=== PATIENT | male | born 1950 | race Caucasian/White ===

== ENCOUNTER 2022-04-09 14:00 | Outpatient (RCR) | payer MEDICARE, SELFPAY ==
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
--- NOTE | 2022-02-26 10:34 | PCPTNOTE ---
The patient treatment was not able to be completed on 02/26/22 due to patient calling to cancel stating he is unable to make it. Will plan to continue treatment per plan of care.
--- NOTE | 2022-03-06 15:53 | PCPTNOTE ---
Patient called & cancelled scheduled appointment this date due to no reason. Did not reschedule at this time.
--- NOTE | 2022-04-09 14:49 | PTOPEVAL ---
PHYSICAL THERAPY PROGRESS REPORT AND DISCHARGE SUMMARY. Thank you for referring Reed Tao III to [facility].? The patient is to be discharged from skilled therapy services at this time. Please review, sign, date and return this plan of care MAURICIO. I agree with and certify that the following plan of care is medically necessary. Referring Physician Date Attending Provider: Mary Sánchez, HOTEL ASSISTANT GENERAL MANAGER Evaluation Information Diagnosis alcohol induced neuropathy Subjective Information Pt states he is still having Query Text:As Reported By Patient/ issues with his balance. He Family reports he has increased his activity both walking and getting in his pool. He reports intermittently doing his exercises. Pt states he has learned that physical therapy will not fix his nerves. Pain Assessment Pain Score 0: Self Report Lower Extremity Range of Motion General Lower Extremity Range of Motion WFL/Left,WFL/Right Gross Lower Extremity Range of Motion lacks hip extension lorenzo Lower Extremity Muscle Strength Testing Hip Strength Bilateral Hip Flexion Strength 4+ Good + Hip Extension Strength 3+ Fair + Hip Abduction Strength 4- Good - Knee Strength Bilateral Knee Flexion Strength 4+ Good + Knee Extension Strength 5 Normal Muscle Length Testing Two-Joint Hip Flexor Shortened Muscles Short (R) Iliopsoas,Short (L) Iliopsoas,Short (R) Rectus Femoris,Short (L) Rectus Femoris,Short (R) Ilial Tib Band,Short (L) Ilial Tib Band Piriformis w/Hip Neutral (R) Severe Tightness,(L) Severe Tightness Left Hamstring Length -35 Right Hamstring Length -[address] Balance Assessment STREET Balance Evaluation Total Score ( 42/56 Timed Up and Go Test (TUG) (Seconds) 17 Comments Initially: 19s 04/09/22: 17s 5 Time Sit to Stand 5 Time Sit to Stand Comments 23s with use of UEs Query Text:Normative Data: If Greater 24s without use of UEs Than 15 Seconds, 74% Increase Risk for Recurrent Falls Gait Assessment Ambulation Assistive Devices None Gait Pattern Ataxic Gait,Trendelenburg Gait ,Wide Based Gait Gait Pattern Observed Decreased Stride Length - Left ,Decreased Stride Length - Right,No Heel Strike - Left,No Heel Strike - Right,Trunk Flexed Othe
== END 2022-04-10 09:48 | disposition home or self-care (01) ==
LOC: ANHPT 14:00
PROVIDERS: PCP Internal Medicine; Visit Provider Nurse Practitioner Gerontology
DX: G62.1 Alcoholic polyneuropathy (principal)
CPT/HCPCS: 97110; 97112; 97162

== ENCOUNTER 2025-06-28 01:19 | Day surgery (SDC) | payer MEDICARE, SELFPAY ==
--- OUTSIDE RECORDS SUMMARY | 2024-04-17 10:40 | XMS_ITS | Encounter Summary ---
Author Organization [facility] Healthcare Address [address] [place] [address] Care Team Providers Care Conference Assistant Name Role Phone Jairo Guerrero MD Primary Care Provider [phone] Reason for Visit * Diagnostic Imaging (Routine) - Closed Specialty Diagnoses / Procedures Referred By Contac t Referred To Contact Diagnoses Right hip pain Procedures XR Hip Right 2 or 3 Views W Pelvis Steve Matias MD Phone: tel: fax: [facility] Referral ID Status Reason Start Date Expiration Date Visits Re quested Visits Authorized [id number] Closed 04/17/2024 05/17/2025 1 1 Encounter Details Date Type Department Care Team (Late st Contact Info) Description 04/17/2024 10:40 AM CDT Hospital Encounter [facility] Orthopedics and Sports Medicine at [address] [id number] Social History Tobacco Use Types Packs/Day Years Used Date Smoking Tobacco: Former Smokeless Tobacco: Never Alcohol Use Standard Drinks/Week Comments No 0 (1 standard drink = 0.6 oz pur e alcohol) AUDIT-C Answer Date Recorded Q1: How often do you have a drink containing alc ohol? 2-3 times a week 01/20/2022 Q2: How many drinks containi ng alcohol do you have on a typical day when you are drinking? 1 or 2 01/20/2022 Q3: How often do you have si x or more drinks on one occasion? Never 01/20/2022 Sex and Gender Information Value Date Recorded Sex Assigned at Not on file Legal Sex Male 3:20 PM CDT Gender Identity Not on file Sexual Orientation Not on file documented as of this encounter Plan of Treatment Not on file documented as of this encounter Procedures Procedure Name Priority Date/Time Associated Diagnosis Comments XR HIP RIGHT W PELVIS 2 OR 3 VIEWS Schedule Routine, Read Routine (OP Routine) 04/17/2024 10:47 AM CDT Right hip pain documented in this encounter Results * XR Hip Right 2 or 3 Views W Pelvis (04/17/2024 10:47 AM CDT) Anatomical Region Laterality Modality Lower Extremities, Hip, Pelvis Right D igital Radiography Narrative 04/17/2024 11:03 AM CDT Today we obtained x-rays of the hip and pelvis and they show that the prosthesis is in excellent position with no signs of loosening or wear or any other problems. His leg lengths and offset appeared to be equal on x-ray. us Steve Matias MD IMG XR PROCEDURES Final R esult documented in this encounter Visit Diagnoses Not on filedocumented in this encounter Care Teams Conference Assistant Relationship Specialty Start Date End Date Jairo Guerrero MD PCP - General 02/04/17 documented as of this encounter
[2025-06-26 10:35] VITALS: BMI 33.5
--- OUTSIDE RECORDS SUMMARY | 2025-06-28 01:25 | XMS_ITS | Clinical Summary ---
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 Gender Identity Not on file Sexual Orientation Not on file Plan of Treatment Health Maintenance Due Date Last Done Comments Hepatitis C Virus (HCV) Screening 1950 TdaP Immunization 1950 Cologuard 1996 Colonoscopy 1996 Colorectal Cancer Screening 1996 Immunochemical Fecal Occult Blood 1996 Pneumococcal Immunization (5 0+ years) (1 of 1 - PCV) 2001 Zoster Immunization (1 of 2) 2001 SARS-COV-2 Immunization ( season) 2024 09/24/2021, 12/31/2020, 12/03/2020 Influenza Immunization (#1) 2025 07/30/2021 Respiratory Syncytial Virus (RSV) Immunization (Adult) (1 - 1-dose 75+ series) 2026 Hepatitis B Immunization Aged Out No longer eligible based on patient's age to complete this topic Human Papillomavirus (HPV) Immunization Aged Out No longer eligible b ased on patient's age to complete this topic Meningococcal Immunization (ACWY) Aged Out No longer eligible b ased on patient's age to complete this topic Rotavirus Immunization Aged Out No lo nger eligible based on patient's age to complete this topic
--- OUTSIDE RECORDS SUMMARY | 2025-06-28 01:25 | XMS_ITS | Clinical Summary ---
Author Organization [facility] Address [address] [place] [address] Care Team Providers [facility] Name Role Phone Jairo Guerrero MD Primary Care Provider + [phone] Allergies No known active allergies Medications acetaminophen (TYLENOL) 500 mg tablet Take 1 tablet (500 mg total) by mouth every 6 (six) hours as needed for pain 30 tablet 05/14/2022 Active aspirin 81 mg enteric coated tabletIndications :Myocardial Reinfarction Prevention Take 1 tablet (81 mg total) by mouth daily 02/19/2023 Active multivitamin-mine rals-lutein tablet Take by mouth Active atorvastatin (LIPITOR) 10 mg tablet Take 1 tablet (10 mg total) by mouth daily 08/24/2023 Active gabapentin (Neurontin) 600 mg tabletIndications :Neuropathic Pain Take 1 tablet (600 mg total) by mouth 3 (three) times a day 270 tablet 3 07/12/2024 07/12/20 25 Active Active Problems Problem Noted Date Diagnosed Date Dyspnea 09/25/2024 Fracture of rib 09/25/2024 Left knee pain 09/25/2024 Open wound of right hip 09/25/2024 Primary localized osteoarthritis of pelvic regio n and thigh 09/25/2024 Status post total hip replacement, right 024 Transaminitis 02/15/2023 Assessment & Plan (02/19/2023 11:01 AM CDT): Monitor outpt. Mild elevation. Assessment & Plan (02/15/2023 8:32 PM CDT): Mild elevation, maybe secondary to lower blood pressure. Hydralazine placed on hold, patient not using [place], Tylenol being used typically only twice daily, we will continue to monitor Presence of unspecified artificial hip joint Weakness of right lower extremity 01/31/2023 Primary insomnia 01/25/2023 Assessment & Plan (02/17/2023 9:11 PM CDT): Sleep improved with increased trazodone, continue trazodone 50 mg nightly Assessment & Plan (02/15/2023 8:28 PM CDT): Reporting worsening insomnia, will increase trazodone to 50 mg q.h.s., monitor for improvement Assessment & Plan (02/02/2023 10:23 PM CDT): Sleeping much better with trazodone. If good spirits. Assessment & Plan (01/25/2023 1:33 PM CDT): Melatonin not effective, we will discontinue. Will start trazodone 25 mg q.h.s., monitor for improvement. Encouraged good sleep hygiene. Reactive depression 01/18/2023 Assessment & Plan (02/10/2023 6:28 PM CDT): Patient upset with recent news that he may have to stay longer for further treatment. Cooperative with care, participating in therapy. Remains off intervention Assessment & Plan (01/25/2023 1:34 PM CDT): Mood improved, continue to offer supportive care. Maybe more labile due to prednisone dosing Assessment & Plan (01/19/2023 12:54 PM CDT): Pt continues to decline medical intervention - pt very angry today. Offered support. Asked staff to be more attentive at night especially. [employer] evaluated pt - MOCA - cognition WNL Assessment & Plan (01/18/2023 8:30 PM CDT): Mood discussed with patient. Admits that he was anxious this morning when he could not readjust his physical positioned. He declines any additional medication at this time, offered supportive care. Asked administrative staff to move rooms as possible as remain is causing some distress Septic hip 01/13/2023 Assessment & Plan (02/19/2023 11:05 AM CDT): Likely sequelae of ileus of sepsis right side. Patient underwent I&D of the right hip joint with removal of the Bearing, including femoral head and polyethylene and debridement with irrigation and reinsertion of the liner and femoral head on 01/04/[address] Matias. Completed IV abx 02/02. 02/03 woke up with large amount of bleeding. CT ordered, showing above. Fu with surgery 02/09, cx taken. History result came back positive for moderate amount Streptococcus. Patient was started on cefdinir, but ortho KIER OPERATOR confirmed that ID does not want any antibiotic to start prior to hip aspiration result. 02/12/2023 for outpatient procedure in ortho office at [facility] for aspiration. Fu with Ortho/ID 02/18. Options discussed, repeat cx obtained and pending. Patient is to fu 02/25 to discuss options, including surgery. He is stable for discharge. Is aware any fevers, chills, worsening drainage to contact ortho or present to ED for eval. PT/OT/RN set up for discharge. Assessment & Plan (02/17/2023 9:10 PM CDT): Patient has follow-up in a.m. to review options with Orthopedic surgery with Infectious Disease input. Incision currently remained stable with minimal drainage, no pain. Continue therapies to improve strength and endurance. Assessment & Plan (02/15/2023 8:27 PM CDT): Per orthopedic surgery there is no growth to date on hip aspiration, per nurse practitioner there is some growth on wound culture suggesting superficial surgical site infection. Information sent to Infectious Disease - we will follow-up in a.m. for antibiotic recommendations. Assessment & Plan (02/11/2023 3:41 PM CDT): History result came back positive for moderate amount Streptococcus. Patient was started on cefdinir, but ortho KIER OPERATOR confirmed that ID does not want any antibiotic to start prior to hip aspiration result. Patient going tomorrow 02/12/2023 for outpatient procedure in ortho office at [facility]. Based on the result, treatment plan will be decided Assessment & Plan (02/10/2023 10:23 AM CDT): Awaiting culture results, repeat labs in am. Will start Cefdinir until orders received from ID or ortho. Hold discharge plans for now until cleared by ID. Attempted to call ortho for clarification, no answer in office. Message left with RN @ ID's office. Continue therapy Assessment & Plan (02/09/2023 6:32 PM CDT): Patient had a follow-up visit with the surgeon today. They have taken a culture, they will review CT, labs and contact ID. They will call with further orders. It is in patient's best interest to postpone discharge until plans are made. Continue therapies Assessment & Plan (02/05/2023 6:47 PM CDT): Drainage from incision has terminated, incision unchanged from previous exam and stable. Completed IV antibiotics. Will leave PICC in place in case patient requires further IV antibiotics after his follow-up visit with Orthopedic surgery on 02/09. Continue current pain control, therapies. Encouraged patient to continue to use ice post therapy Assessment & Plan (02/03/2023 11:23 AM CDT): Likely sequelae of ileus of sepsis right side. Patient underwent I&D of the right hip joint with removal of the Bearing, including femoral head and polyethylene and debridement with irrigation and reinsertion of the liner and femoral head on 01/04/[address] Matias. continued on antibiotic IV for 4 weeks (till 02/02/2023) , via PICC line placed on 01/08, followed by oral antibiotics thereafter. Pt had been doing well, sutures were intact, pain controlled. Woke up this am with large amount of bleeding from incision. Concern for complication of above. Will check hip CT. Called ortho and left message to get antibiotic orders. Will need follow up with: Steve Matias [phone] [place] [address], [place] [phone] F/u labs in am Assessment & Plan (02/02/2023 10:22 PM CDT): Incision stable, participating in therapy. Pain controlled. CTX completes today. Will need new f/u with ortho. Assessment & Plan (01/27/2023 5:17 PM CDT): Right hip incision with some mild drainage, overall pain is well managed. Patient was making progress in therapy. Continue ceftriaxone through 02/02/2023, orthopedic office recommended follow-up but this will need to be postponed due to new diagnosis of COVID Assessment & Plan (01/19/2023 1:07 PM CDT): Pain controlled, tolerating antibiotic - no fever, wound stable with wound vac. Making progress with therapy - ambulating 75ft. Left message with [facility] orthopedics - awaiting recs for follow up. Will remain on CTX through 02/02 Assessment & Plan (01/18/2023 8:37 PM CDT): Pain overall well controlled, new script sent for narcotic refill. Continue IV antibiotics through 02/02/2023. Continue aggressive wound care with wound VAC. therapies are in place, monitor patient's progress. Patient does have some mild leukocytosis, but CRP improved Assessment & Plan (01/15/2023 9:05 PM CDT): Related to right iliopsoas abscess, status post multiple surgical interventions, wound VAC in place. Tolerating IV antibiotics which should continue through 02/02/2023. Continue aggressive wound care, therapies. Pain is generally controlled with current regimen. Assessment & Plan (01/13/2023 12:45 PM CDT): Likely sequelae of ileus of sepsis right side. Patient underwent I&D of the right hip joint with removal of the Bearing, including femoral head and polyethylene and debridement with irrigation and reinsertion of the liner and femoral head on 01/04/[address] Matias. Wound VAC placed, continued on antibiotic IV for 4 weeks (till 02/02/2023) , via PICC line placed on 01/08, followed by oral antibiotics thereafter. Culture remained negative. Drain removed. Continue wound care. Therapies in place. Postoperative anemia 01/13/2023 Assessment & Plan (02/19/2023 11:02 AM CDT): H&H stable. Resume ASA 81mg every day at discharge with Iron 325mg BID. FU with PCP. Assessment & Plan (02/05/2023 6:48 PM CDT): H&H is stable despite large amount of bleeding from wound. We will repeat labs on 02/08/2023 to monitor Assessment & Plan (02/03/2023 11:25 AM CDT): H/H had been stable, plt mildly low. Will repeat labs in am as pt has increased bleeding. Continue iron supplement. Transfuse prn for hgb <6.9 Assessment & Plan (01/19/2023 12:50 PM CDT): H/h with significant drop - will add iron Assessment & Plan (01/15/2023 9:11 PM CDT): Last hemoglobin available last hemoglobin available is 10.8, follow-up labs 01/18 Assessment & Plan (01/13/2023 12:46 PM CDT): Hemoglobin slightly dropped after surgery. Required no transfusion. Monitor H&H Abscess of right hip 12/28/2022 Assessment & Plan (02/19/2023 11:01 AM CDT): IV abx completed - SEE ABOVE. Assessment & Plan (01/13/2023 12:41 PM CDT): Status post I&D at [facility] on 12/27/2022. Culture with no growth as per ID. Recommended to continue IV ceftriaxone. Hyperlipidemia 08/26/2022 Osteoarthritis 08/26/2022 Abdominal aortic aneurysm 01/20/2022 Overview (09/25/2024): 4 cm May 2020 Conductive hearing loss 01/20/2022 Hypertensive disorder 01/20/2022 Assessment & Plan (02/19/2023 11:01 AM CDT): BP stable without medication. Fu outpt. Assessment & Plan (02/17/2023 9:12 PM CDT): Blood pressure stable although lower without intervention. Continue to hold hydralazine Assessment & Plan (02/15/2023 8:29 PM CDT): Blood pressure lower, will hold hydralazine, monitor Assessment & Plan (02/10/2023 6:30 PM CDT): Blood pressure is overall well controlled, continue hydralazine Assessment & Plan (02/09/2023 6:35 PM CDT): Blood pressure lower at times, will add hold parameters to hydralazine Assessment & Plan (02/05/2023 6:48 PM CDT): Blood pressure lower, will reduce hydralazine to 25 mg t.i.d. Assessment & Plan (02/03/2023 11:26 AM CDT): BP stable, continue hydralazine Assessment & Plan (01/27/2023 5:15 PM CDT): Blood pressure overall well controlled, continue hydralazine t.i.d. Assessment & Plan (01/25/2023 1:34 PM CDT): Blood pressure controlled, continue hydralazine 50 mg t.i.d. Assessment & Plan (01/18/2023 8:46 PM CDT): Blood pressure with improved control, continue hydralazine 50 mg t.i.d. Assessment & Plan (01/15/2023 12:24 PM CDT): Blood pressure remains suboptimally controlled, will increase hydralazine to 50 mg t.i.d. Assessment & Plan (01/13/2023 12:46 PM CDT): Currently not on any med due to being hypotensive while inpatient. Continue to monitor Dyslipidemia 12/03/2019 Peripheral neuropathy 12/02/2019 Assessment & Plan (01/25/2023 1:33 PM CDT): Patient was taking gabapentin 800 mg t.i.d., this was not continued upon transfer from hospital. Renal function improved but not yet normal. We will start gabapentin 300 mg b.i.d. and monitor for improvement in symptoms. 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 He has been noticing worsening dysesthetic pain despite using gabapentin 600 mg t.i.d.. I will increase his gabapentin 800 mg t.i.d. in an effort to lessen his dysesthetic pain. I will see him back in the office in 1 year for reassessment on increased therapy. Resolved Problems Problem Noted Date Diagnosed Date Resolved Date Neutropenia associated with infection 02/02/2023 02/19/2023 Assessment & Plan (02/03/2023 11:25 AM CDT): Will recheck labs in am, no fever. Remain on isolation. Assessment & Plan (02/02/2023 10:21 PM CDT): Acute, likely related to COVID. Pt otherwise without symptoms, already on isolation. Monitor COVID 01/27/2023 02/19/2023 Assessment & Plan (02/09/2023 6:33 PM CDT): Diagnosed on 01/26/2023, completed Paxlovid, is now asymptomatic and COVID recovered. Assessment & Plan (01/27/2023 12:57 PM CDT): Patient tested positive for COVID-19 on 01/26/23. Pulmonary status has remained stable off O2. Paxlovid is available. The patient qualifies for this infusion based on his age and comorbidity of renal disease. The patient is at higher risk for progression of severe disease due to age and comorbidities. It was explained that this medication has been shown to reduce the risk of hospitalization/progression of COVID sympotms. It is given intravenously with observation. It appears safe but full side effects are not known. side effects include allergic reaction, nausea, diarrhea are possible. The FDA has authorized the emergency use of Paxlovid for the treatment of [id number] COVID-19 in adults. The Fact Sheet for Patients, Parents and Caregivers was reviewed with the patient at the bedside. He has been informed of alternatives (no current alternatives except for supportive standard of care) to receiving authorized Paxlovid and have been informed that Paxlovid is an unapproved drug that is authorized for use under this Emergency Use Authorization. After the above discussion with the patient and family they were agreeable to receive Paxlovid. Will monitor patient closely, offered supportive care. Leukocytosis 01/18/2023 02/19/2023 Assessment & Plan (01/18/2023 8:47 PM CDT): Likely related to prednisone use, we will need to monitor as patient does have active infection. Recheck in a.m. KAZ (acute kidney injury) 01/13/2023 Assessment & Plan (02/11/2023 3:56 PM CDT): Hemoglobin again 1.4. Was started on cefdinir for septic arthritis will DC med for now. Will repeat renal test on 02/15 Assessment & Plan (01/27/2023 12:59 PM CDT): Much improved, Cr now 1.3. Will attempt to wean prednisone (on for possible interstitial nephritis). Monitor Assessment & Plan (01/19/2023 12:47 PM CDT): Pt has received majority of 1L NS - discussed need for improved po fluid intake, elevated Cr. Will continue to monitor - recheck labs in am Assessment & Plan (01/18/2023 8:44 PM CDT): Now with acute renal failure - will give 1L NS, recheck labs in am. Need to make sure pt is emptying his bladder- check PVR Assessment & Plan (01/15/2023 9:12 PM CDT): Creatinine had improved to 0.67, continue to encourage p.o. fluid intake, follow-up labs on 01/18/2023 Assessment & Plan (01/13/2023 12:57 PM CDT): Suspected ATN induced due to hypotension. Baseline creatinine 0.8 >> elevated to 3.2. Renal ultrasound normal, urine with elevated eosinophils. Started on prednisone for acute interstitial nephritis, Received IV fluids, antihypertensive meds celecoxib discontinued per Nephrology. Repeat renal function Immunizations Immunization Administration Dates Next Due Influenza, Quadrivalent, Hig h Dose, Preservative Free, Intrr 07/30/2021 Moderna SARS-CoV-2 Monovalent Vaccination (12+ Y RS) 12/31/2020,12/03/2020 Tdap 05/14/2022 Surgical History Surgery Date Site/Laterality Comments KNEE SURGERY HIP SURGERY Medical History Medical History Date Comments Hypertension Hypertension Peripheral neuropathy Abdominal aortic aneurysm (AAA) Dyslipidemia Conductive hearing loss Family History Medical History Relation Name Comments Cerebral aneurysm Father Stroke Mother Liver disease Sister 1 Cancer Sister 2 Relation Name Status Comments Father Mother Sister 1 Sister 2 Social History Tobacco Use Types Packs/Day Years Used Date Smoking Tobacco: Former Smokeless Tobacco: Never Tobacco Cessation:Counseling Given: Not Answered Alcohol Use Standard Drinks/Week Comments No 0 [...] on file Sexual Orientation Not on file Obstetrics History Last Filed Vital Signs Vital Sign Reading Time Taken Comments Blood Pressure 153/93 09/18/2024 10:36 AM COMMERCIAL CREDIT SPECIALIST Pulse 60 09/18/2024 10:36 AM COMMERCIAL CREDIT SPECIALIST Temperature 36.7 C (98 F) 02/19/2023 10:52 AM CDT Respiratory Rate 18 07/12/2024 10:47 AM CDT Oxygen Saturation 97% 09/18/2024 10:36 AM COMMERCIAL CREDIT SPECIALIST Inhaled Oxygen Concentration - - Weight 112.5 kg (248 lb) 09/18/2024 10:36 AM COMMERCIAL CREDIT SPECIALIST Height 177.8 cm (5' 10) 09/18/2024 10:36 AM COMMERCIAL CREDIT SPECIALIST Body Mass Index 35.58 09/18/2024 10:36 AM COMMERCIAL CREDIT SPECIALIST Plan of Treatment Health Maintenance Due Date Last Done Comments Colon Cancer Screening-Colonoscopy 1950 Depression Screening 1950 Fall Risk Assessment 1950 Hepatitis B Screening 1969 Pneumococcal vaccine 65+ (1 of 1 - PCV) 2001 Zoster Vaccine (1 of 2) 2001 Well Visit 65+ 2016 Covid-19 Vaccine (3 - 2023-2 5 season) 2024 12/31/2020, 12/03/2020 Influenza Vaccine (#1) 2025 07/30/2021 DTaP/Tdap/Td Vaccine (2 - Td or Tdap) 05/14/2032 05/14/2022 Hepatitis C Screening Completed 02/08/2017 Abdominal Aortic Aneurysm (A AA) Screen Completed 09/19/2024, 09/18/2024, 09/18/2024, Additional history exists Procedures Procedure Name Priority Date/Time Associated Diagnosis Comments CTA ABDOMEN PELVIS W WO CONTRAST Schedule Routine, Read Routine (OP Routine) 09/18/2024 10:27 AM COMMERCIAL CREDIT SPECIALIST Infrarenal abdominal aortic aneurysm (AAA) without rupture Renal artery aneurysm HEPATITIS C ANTIBODY Routine 02/08/2017 12:00 PM CDT from Last 3 Months or Most Recently Relevant to Health Maintenance Results * CTA Abdomen Pelvis (09/18/2024 10:27 AM COMMERCIAL CREDIT SPECIALIST) Anatomical Region Laterality Modality Body N/A Computed Tomogra phy 09/18/2024 3:05 PM COMMERCIAL CREDIT SPECIALIST Impressions 09/18/2024 3:11 PM COMMERCIAL CREDIT SPECIALIST 1. 38 mm x 45 mm infrarenal abdominal aortic aneurysm. 2. AAA volume: 85 cc. This is relatively stable since the prior exam. 3. Stable celiac artery dissection Dictated by: Tee Duran M.D. The radiology attending physician has personally reviewed this study, and had reviewed and/or edited this written report and agrees with it. Electronically signed by: Luís Silver M.D., Ph.D Narrative 09/18/2024 3:11 PM COMMERCIAL CREDIT SPECIALIST EXAMINATION: CT ANGIOGRAPHY OF THE ABDOMEN AND PELVIS WITH AND WITHOUT CONTRAST HISTORY: Abdominal aortic aneurysm, preoperative planning. TECHNIQUE: CT angiography of the abdomen and pelvis was performed prior to and following uneventful intravenous administration of 93 ml Optiray-350 using the pre-endoluminal stent graft protocol. Vascular 3D images were generated on a dedicated workstation and also reviewed. COMPARISON: CTA abdomen pelvis 09/13/2023 FINDINGS: VASCULAR FINDINGS: There is an a somewhat saccular infrarenal abdominal aortic aneurysm. There are no signs of aneurysm instability. Diffuse atherosclerotic disease. Celiac artery: Short segment dissection extending to the bifurcation with moderate stenosis at the true lumen with dissection flap better appreciated on today's examination, unchanged from 09/14/2022 (series 7, image 51; series 8, image 78). SMA: No significant stenosis. Replaced right hepatic artery arising from the SMA. NATE: No significant stenosis Renal arteries: No significant stenosis Vascular measurements: Aortic diameter at proximal implantation site: 24 mm AP x 24 mm [id number] Aortic diameter 10mm inferior to proximal implantation site: 28 mm AP x 28 mm [id number] Aortic diameter 15mm inferior to proximal implantation site: 29 mm AP x 28 mm [id number] Maximum outer aneurysm diameter: 38 mm AP x 45 mm [id number], previously 36 x 43 mm. Aortic neck length: 42 mm Right common iliac diameter: 12 mm Left common iliac diameter: 12 mm Right external iliac diameter: 10 mm Left external iliac diameter: 10 mm Length from lower renal artery to right common iliac origin: 126 mm Length from lower renal artery to left common iliac origin: 131 mm Right length for sealing/lower renal to iliac bifurcation: 195 mm Left length for sealing/lower renal to iliac bifurcation: 193 mm AAA volume (lowest renal artery to aortic bifurcation): 85 cc NON-VASCULAR FINDINGS: Dependent bibasilar atelectasis. Heart size normal. Multivessel coronary arterial atherosclerotic calcifications. Segment 8 simple cyst, unchanged. Liver is otherwise normal. Splenic granulomatous calcifications. Benign splenic cyst or lymphangioma is unchanged. Cholelithiasis without evidence of acute cholecystitis. No intrahepatic or extrahepatic biliary duct dilation. 10 mm left adrenal gland adenoma, unchanged. No right adrenal mass. 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 Stomach and duodenal sweep are normal. No evidence of small bowel obstruction or pathology. Colon is decompressed with scattered colonic diverticula without evidence of acute diverticulitis. Periumbilical bilobed hernia containing fat. Tiny right inguinal hernia. Healed right rib fractures. Multilevel spinal degenerative changes. Postoperative changes of total right hip arthroplasty. Procedure Note Luís Silver MD PhD - 09/18/2024 EXAMINATION: CT ANGIOGRAPHY OF THE ABDOMEN AND PELVIS WITH AND WITHOUT CONTRAST HISTORY: Abdominal aortic aneurysm, preoperative planning. TECHNIQUE: CT angiography of the abdomen and pelvis was performed prior to and following uneventful intravenous administration of 93 ml Optiray-350 using the pre-endoluminal stent graft protocol. Vascular 3D images were generated on a dedicated workstation and also reviewed. COMPARISON: CTA abdomen pelvis 09/13/2023 FINDINGS: VASCULAR FINDINGS: There is an a somewhat saccular infrarenal abdominal aortic aneurysm. There are no signs of aneurysm instability. Diffuse atherosclerotic disease. Celiac artery: Short segment dissection extending to the bifurcation with moderate stenosis at the true lumen with dissection flap better appreciated on today's examination, unchanged from 09/14/2022 (series 7, image 51; series 8, image 78). SMA: No significant stenosis. Replaced right hepatic artery arising from the SMA. NATE: No significant stenosis Renal arteries: No significant stenosis Vascular measurements: Aortic diameter at proximal implantation site: 24 mm AP x 24 mm [id number] Aortic diameter 10mm inferior to proximal implantation site: 28 mm AP x 28 mm [id number] Aortic diameter 15mm inferior to proximal implantation site: 29 mm AP x 28 mm [id number] Maximum outer aneurysm diameter: 38 mm AP x 45 mm [id number], previously 36 x 43 mm. Aortic neck length: 42 mm Right common iliac diameter: 12 mm Left common iliac diameter: 12 mm Right external iliac diameter: 10 mm Left external iliac diameter: 10 mm Length from lower renal artery to right common iliac origin: 126 mm Length from lower renal artery to left common iliac origin: 131 mm Right length for sealing/lower renal to iliac bifurcation: 195 mm Left length for sealing/lower renal to iliac bifurcation: 193 mm AAA volume (lowest renal artery to aortic bifurcation): 85 cc NON-VASCULAR FINDINGS: Dependent bibasilar atelectasis. Heart size normal. Multivessel coronary arterial atherosclerotic calcifications. Segment 8 simple cyst, unchanged. Liver is otherwise normal. Splenic granulomatous calcifications. Benign splenic cyst or lymphangioma is unchanged. Cholelithiasis without evidence of acute cholecystitis. No intrahepatic or extrahepatic biliary duct dilation. 10 mm left adrenal gland adenoma, unchanged. No right adrenal mass. 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 Stomach and duodenal sweep are normal. No evidence of small bowel obstruction or pathology. Colon is decompressed with scattered colonic diverticula without evidence of acute diverticulitis. Periumbilical bilobed hernia containing fat. Tiny right inguinal hernia. Healed right rib fractures. Multilevel spinal degenerative changes. Postoperative changes of total right hip arthroplasty. IMPRESSION: 1. 38 mm x 45 mm infrarenal abdominal aortic aneurysm. 2. AAA volume: 85 cc. This is relatively stable since the prior exam. 3. Stable celiac artery dissection Dictated by: Tee Duran M.D. The radiology attending physician has personally reviewed this study, and had reviewed and/or edited this written report and agrees with it. Electronically signed by: Luís Silver M.D., Ph.D Marybel Yang NP IM CT PROCEDURES Final Result * Hepatitis C antibody (02/08/2017 12:00 PM CDT) Hep C Ab Non-Reactiv e Non-Reactiv e [facility] Blood specimen (specimen) 02/08/2017 12:00 PM CDT 02/08/2017 5:09 PM CDT Gilbert Carrillo MD LAB MICROBIOLOGY - GENER AL ORDERABLES Edited Result - Final [facility] [address] Department [place] [address] from Last 3 Months or Most Recently Relevant to Health Maintenance Insurance MEDICARE [facility] MEDICARE [facility] MEDICARE [facility] Care Teams Hr Internship Relationship Specialty Start Date End Date Jairo Guerrero MD [facility] - General 02/04/17
[2025-06-28 10:31] VITALS: BP 112/73; PULSE 72; RESP 19; TEMP 36.5; O2SAT 99
[2025-06-28] MEDS: LACTATED RINGERS 1,000 ML 150 ML IV CONT (10:45)
--- NOTE | 2025-06-28 11:22 | PM.HPGS ---
History of Present Illness History of Present Illness Consent: Risks, benefits, and alternatives have been discussed and questions answered. Patient agrees to proceed with procedure. Chief complaint: Personal history of colon polyps, unspecified Narrative: Reed Tao III is a 75 year old male here for another screening colonoscopy Review of Systems Review of Systems: All systems reviewed & are unremarkable except as noted in HPI and below PMFSH Past Medical History Medical History (Updated 06/28/25 @ 11:22 by Mkye Morales MD) Colon cancer screening Social History Social History Years smoked: 20 Smoking status: Former smoker Alcohol intake: never Substance use: never Substance use type: does not use Living arrangements: with family Spiritual care concerns: No Meds Home Medications and Allergies Home Medications ?Medication ?Instructions ?Recorded ?Confirmed ?Type atorvastatin 10 mg tablet 10 mg PO DAILY 06/26/25 06/26/25 History gabapentin 600 mg tablet 600 mg PO TID 06/26/25 06/26/25 History losartan 50 mg-hydrochlorothiazide 1 tablet PO DAILY 06/26/25 06/26/25 History 12.5 mg tablet ow-gi-bxgmv-lutein-herbal 293 1 tablet PO DAILY 06/26/25 06/26/25 History Allergies Allergy/AdvReac Type Severity Reaction Status Date / Time No Known Allergies Allergy Mild Verified 06/28/25 10:30 Vital Signs Vital Signs - 24 hr 06/28/25 10:31 Temperature 97.7 F Pulse Rate 72 Respiratory Rate 19 Blood Pressure 112/73 Pulse Oximetry 99 Oxygen Delivery Room Air Exam Const: General: comfortable and no acute distress HENMT: Face/Nose/Sinus: Normal nares present Eyes: General: appearance normal, both eyes and all related structures Resp: Auscultation: clear to auscultation bilaterally Cardio: Rate: regular rate Rhythm: regular rhythm GI: Inspection: non-distended GI Palp: Yes Soft to palpation Skin: General skin exam: normal color Neuro: Speech: normal speech Extrem: General: normal to inspection Psych: Mental Status: mental status grossly normal Assessment and Plan Assessment and plan (1) Colon cancer screening: Code(s): Z12.11 - Encounter for screening for malignant neoplasm of colon Status: Acute Assessment and Plan: colonoscopy
[2025-06-28 11:39] VITALS: BP 101/65; PULSE 78; RESP 20; O2SAT 95
[2025-06-28 11:49] VITALS: BP 110/73; PULSE 92; RESP 15; O2SAT 100
[2025-06-28 11:59] VITALS: BP 118/81; PULSE 75; RESP 16; O2SAT 100
--- NOTE | 2025-06-28 13:32 | WPDANESEPPF ---
Anes - Initial Pre Proc Eval Procedure: Operation Date: 06/28/25 11:30 Proposed Procedures p Screening Colonoscopy - Myke Morales MD Date/Time: 06/28/25 13:32 Surgeon: Myke Morales MD Pre Op Diagnosis: Personal history of colon polyps, unspecified Patient Data Age: 75 Gender: M Height: 1.8 m Weight: 107.2 kg Last Vital Signs Temp 97.7 F 06/28/25 10:31 Pulse 75 06/28/25 11:59 Resp 16 06/28/25 11:59 BP 118/81 06/28/25 11:59 Pulse Ox 100 06/28/25 11:59 O2 Del Method Room Air 06/28/25 11:59 Allergies Allergy/AdvReac Type Severity Reaction Status Date / Time No Known Allergies Allergy Mild Verified 06/28/25 10:30 Home Medications ?Medication ?Instructions ?Recorded ?Confirmed ?Type atorvastatin 10 mg tablet 10 mg PO DAILY 06/26/25 06/26/25 History gabapentin 600 mg tablet 600 mg PO TID 06/26/25 06/26/25 History losartan 50 mg-hydrochlorothiazide 1 tablet PO DAILY 06/26/25 06/26/25 History 12.5 mg tablet nf-zk-bvmky-lutein-herbal 293 1 tablet PO DAILY 06/26/25 06/26/25 History Patient hx anesthesia problems: none Family hx anesthesia problems: none Results Review: All pre-operative results and documents have been reviewed as part of the pre-operative evaluation. [facility] Past Medical History Medical History (Updated 06/28/25 @ 11:22 by Myke Morales MD) Colon cancer screening Social History Social History Years smoked: 20 Smoking status: Former smoker Alcohol intake: never Substance use: never Substance use type: does not use Living arrangements: with family Spiritual care concerns: No Anes - Eval Final PreProcedure Day of Procedure 06/28/25 13:32 Patient weight: obese Heart: regular rate and rhythm Lungs: clear to auscultation Airway: Mallampati scale class II Neurological: alert and oriented Last oral intake: >/= 8 hours ASA classification: III Emergent: no Anesthetic plan: proceed Anesthesia type and monitoring: general GIVS and standard monitoring Results Review: All pre-operative results and documents have been reviewed as part of the pre-operative evaluation. Informed Consent: The patient's anesthetic plan and its attendant risks and benefits were discussed with the patient/family/POA. Questions were solicited and answers provided to the satisfaction of the patient/family/POA.
== END 2025-06-28 12:08 | disposition home or self-care (01) ==
PROVIDERS: PCP Internal Medicine; Referring Provider Internal Medicine; Visit Provider Internal Medicine Gastroenterology
PROC: 0DJD8ZZ Inspection of Lower Intestinal Tract, Via Natural or Artificial Opening Endoscopic (ICD-10-PCS; CPT 45378; principal; 2025-06-28 11:30)
DX: Z12.11 Encounter for screening for malignant neoplasm of colon (principal); K57.30 Diverticulosis of large intestine without perforation or abscess without bleeding; Z86.0100 Personal history of colon polyps, unspecified; Z87.891 Personal history of nicotine dependence; E66.9 Obesity, unspecified; Z68.33 Body mass index [BMI] 33.0-33.9, adult
CPT/HCPCS: G0105; J2003; J2704; J7120